=== PATIENT | male | born 1960 | race Caucasian/White ===

== ENCOUNTER 2024-07-15 05:31 | Inpatient (IN) | payer OTHER ==
[~2024-07-15] VITALS: Ht 152.4 cm; Wt 94.8 kg
[2024-07-15 00:55] VITALS: RESP 29
[2024-07-15 05:55] LABS: BG BASE EXCESS -23.9 mmol/L (-2.0-3.0); BG CARBOXYHEMOGLOBIN 1.1 % (0.5-1.5); BG DEOXYHEMOGLOBIN 0.1 % (0.0-5.0); BG FRACTION INSPIRED OXYGEN 100; BG HCO3 ACT 3.5 mmol/L (21.0-28.0); BG METHEMOGLOBIN 0.3 % (0.5-1.5); BG OXYGEN SATURATION 99.9 % (94.0-98.0); BG OXYHEMOGLOBIN 98.5 % (94.0-98.0); BG PCO2 11.3 mmHg (35.0-48.0); BG PH 7.107 (7.350-7.450); BG PO2 258.6 mmHg (83.0-108.0); BG SAMPLE SITE RIGHT RADIAL
[2024-07-15 06:08] LABS: HEMATOCRIT. 34.1 % (42.0-52.0); HEMOGLOBIN. 9.3 g/dL (14.0-18.0); MEAN CORPUSCULAR HEMOGLOBIN 19.8 pg (28.0-32.0); MEAN CORPUSCULAR HGB CONC 27.4 g/dL (31.0-37.0); MEAN CORPUSCULAR VOLUME 72.2 fL (80.0-94.0); MEAN PLATELET VOLUME 8.6 fl (7.4-10.4); PLATELET 719 x1000/uL (130-400); RED BLOOD CELL COUNT 4.73 mill/uL (4.7-6.1); RED CELL DISTRIBUTION WIDTH 20.2 % (11.6-14.6); WHITE BLOOD COUNT 22.2 x1000/uL (4.5-11.0)
[2024-07-15 06:14] LABS: CHLORIDE 98 mEq/L (98-107); POTASSIUM 4.5 mEq/L (3.5-5.1); SODIUM 131 mEq/L (136-145)
[2024-07-15 06:15] LABS: CALCIUM 9.1 mg/dL (8.7-10.4); CARBON DIOXIDE 11 mEq/L (21-32)
[2024-07-15 06:17] LABS: DIFFERENTIAL COMMENT 1
[2024-07-15 06:20] LABS: CREATININE 1.1 mg/dL (0.6-1.3)
[2024-07-15 06:21] LABS: UREA NITROGEN BLOOD 12 mg/dL (9-23)
[2024-07-15 06:22] LABS: ALANINE AMINOTRANSFERASE 24 IU/L (10-49); ALBUMIN 4.3 g/dL (3.2-4.8); ASPARTATE AMINOTRANSFERASE 35 IU/L (<34)
[2024-07-15 06:23] LABS: BILIRUBIN TOTAL 0.3 mg/dL (0.1-1.0); PROTEIN TOTAL 7.1 g/dL (6.0-8.3)
[2024-07-15 06:27] LABS: PROTHROMBIN TIME 11.2 sec (9.6-11.0)
[2024-07-15 06:40] LABS: BILIRUBIN DIRECT < 0.1 mg/dL (<=3.0); LACTIC ACID 13.6 mmol/L (0.4-2.0); TROPONIN I HIGH SENSITIVITY 267 ng/L (3.0-53)
[2024-07-15 06:41] LABS: GLUCOSE 412 mg/dL (70-105)
[2024-07-15 08:10] VITALS: RESP 24
[2024-07-15] MEDS: SODIUM CHLORIDE 0.9% (SEPSIS BOLUS) IV ONE (08:45)
[2024-07-15] MEDS: PIPERACILLIN/TAZO 3.375G/50ML 50 ML IV ONE (08:45)
[2024-07-15 08:57] LABS: ANISOCYTOSIS 2+; MICROCYTOSIS 1+; OVALOCYTES 1+; PLATELET ESTIMATE INCREASED
[2024-07-15] MEDS: VANCOMYCIN 1G PREMIX 200 ML IV ONE (09:24)
[2024-07-15 09:47] LABS: BG BASE EXCESS -6.7 mmol/L (-2.0-3.0); BG CARBOXYHEMOGLOBIN 0.9 % (0.5-1.5); BG DEOXYHEMOGLOBIN 0.3 % (0.0-5.0); BG FRACTION INSPIRED OXYGEN 100; BG HCO3 ACT 16.7 mmol/L (21.0-28.0); BG METHEMOGLOBIN 0.3 % (0.5-1.5); BG OXYGEN SATURATION 99.7 % (94.0-98.0); BG OXYHEMOGLOBIN 98.5 % (94.0-98.0); BG PCO2 26.3 mmHg (35.0-48.0); BG PH 7.421 (7.350-7.450); BG PO2 435.9 mmHg (83.0-108.0); BG SAMPLE SITE RIGHT BRACHIAL; BG TOTAL HEMOGLOBIN 8.7 g/dL (13.5-17.5); BG TOTAL RESPIRATORY RATE 27 b/min; BG VENT MODE MASK - BIPAP
[2024-07-15 09:48] LABS: CLARITY URINE CLEAR (CLEAR); COLOR URINE YELLOW (YELLOW); GLUCOSE URINE TRACE (NEGATIVE); KETONES URINE NEGATIVE (NEGATIVE); LEUKOCYTE ESTERASE URINE 1+ (NEGATIVE); NITRITE URINE NEGATIVE (NEGATIVE); OCCULT BLOOD URINE TRACE (NEGATIVE); PH URINE 5.5 (4.5-8.0); PROTEIN URINE 1+ (NEGATIVE); SPECIFIC GRAVITY URINE 1.011 (1.005-1.030); UROBILINOGEN URINE 0.2 E.U./dL (0.2-1.0)
[2024-07-15 09:53] LABS: TROPONIN I HIGH SENSITIVITY 5355 ng/L (3.0-53)
[2024-07-15 10:07] LABS: BACTERIA URINE 1+; RBC URINE NONE SEEN /hpf (0-2); SQUAMOUS EPITHELIAL CELL URINE NONE SEEN /lpf (RARE/1+); YEAST URINE NONE SEEN
[2024-07-15] MEDS ORDERED: MAGNESIUM 2 G PREMIX 50 ML IV PRN (13:45)
[2024-07-15] MEDS ORDERED: KCL 20MEQ/100ML PREMIX 100 ML IV PRN (13:45)
[2024-07-15] MEDS ORDERED: ONDANSETRON HCL 4MG/2ML INJ IV PRN (13:45)
[2024-07-15] MEDS ORDERED: BLOOD SUGAR DIAGNOSTIC STRIP TEST PRN (13:45)
[2024-07-15] MEDS ORDERED: SODIUM PHOSPHATE 15 MMOL in SODIUM CHLORIDE 0.9% 245 ML IV PRN (13:45)
[2024-07-15] MEDS ORDERED: DEXTROSE 50% WATER 50ML SYRINGE IV PRN (13:45)
[2024-07-15] MEDS ORDERED: HEPARIN 25,000 UNITS PREMIX 250 ML IV SCH ×2 (13:45→14:45)
[2024-07-15] MEDS: DEXT 5%/0.9% NACL 1,000 ML IV SCH (14:00)
[2024-07-15] MEDS ORDERED: POTASSIUM CHLORIDE 40 MEQ in SODIUM CHLORIDE 0.9% 230 ML IV PRN (14:00)
[2024-07-15] MEDS: BLOOD SUGAR DIAGNOSTIC STRIP TEST SCH (14:22)
[2024-07-15] MEDS: SODIUM CHLORIDE 0.9% 1,000 ML IV SCH (14:50)
[2024-07-15] MEDS: PANTOPRAZOLE SODIUM 40 MG/VIAL IV SCH (14:51)
[2024-07-15] MEDS: ASPIRIN 81MG TABLET PO SCH (14:51)
[2024-07-15] MEDS: INSULIN REGULAR 100U/100ML PMX 100 ML IV SCH (14:51)
[2024-07-15] MEDS: PIPERACILLIN/TAZO 3.375G/50ML IV SCH (14:51)
[2024-07-15] MEDS: AZITHROMYCIN 500MG/250ML 250 ML IV SCH (15:43)
[2024-07-15 16:53] LABS: CHLORIDE 108 mEq/L (98-107); POTASSIUM 4.4 mEq/L (3.5-5.1); SODIUM 138 mEq/L (136-145)
[2024-07-15 16:54] LABS: CARBON DIOXIDE 20 mEq/L (21-32)
[2024-07-15 16:55] LABS: CHLORIDE 106 mEq/L (98-107); POTASSIUM 4.3 mEq/L (3.5-5.1); SODIUM 137 mEq/L (136-145)
[2024-07-15 16:56] LABS: CALCIUM 8.6 mg/dL (8.7-10.4); CARBON DIOXIDE 21 mEq/L (21-32)
[2024-07-15 17:01] LABS: CREATININE 0.7 mg/dL (0.6-1.3); UREA NITROGEN BLOOD 9 mg/dL (9-23)
[2024-07-15 17:03] LABS: CREATINE KINASE MB FRACTION 42.4 ng/mL (0.5-3.6)
[2024-07-15 17:07] LABS: GLUCOSE 119 mg/dL (70-105)
[2024-07-15] MEDS: HEPARIN 60 UNITS/KG BOLUS IV NR (17:22)
[2024-07-15] MEDS: ACETAMINOPHEN 325MG TABLET PO PRN (17:29)
[2024-07-15] MEDS: HEPARIN 25,000 UNITS PREMIX 250 ML IV PRN (17:38)
[2024-07-15] MEDS: DOXYCYCLINE 100MG/100ML 100 ML IV SCH (18:23)
[2024-07-15] MEDS: VANCOMYCIN 750MG/150ML (BAXTER) IV SCH (19:27)
[2024-07-15 20:37] LABS: CHLORIDE 107 mEq/L (98-107); POTASSIUM 3.9 mEq/L (3.5-5.1); SODIUM 137 mEq/L (136-145)
[2024-07-15 20:38] LABS: CARBON DIOXIDE 19 mEq/L (21-32)
[2024-07-15 20:45] LABS: PHOSPHORUS 2.9 mg/dL (2.5-4.9)
[2024-07-15] MEDS: ATORVASTATIN CALCIUM 40MG TABLET PO SCH (20:53)
[2024-07-15] MEDS ORDERED: HEPARIN BOLUS PRN aPTT <30 IV (23:00)
[2024-07-15] MEDS: ZOLPIDEM TARTRATE 5MG TABLET PO PRN (23:50)
[2024-07-16 00:19] LABS: CHLORIDE 109 mEq/L (98-107); POTASSIUM 4.1 mEq/L (3.5-5.1); SODIUM 139 mEq/L (136-145)
[2024-07-16 00:20] LABS: CARBON DIOXIDE 19 mEq/L (21-32)
[2024-07-16 00:26] LABS: CREATINE KINASE MB FRACTION 28.9 ng/mL (0.5-3.6)
[2024-07-16 00:27] LABS: CREATINE KINASE 234 IU/L (46-171); PHOSPHORUS 2.9 mg/dL (2.5-4.9)
[2024-07-16 00:35] LABS: TROPONIN I HIGH SENSITIVITY 5182 ng/L (3.0-53)
[2024-07-16] MEDS: HEPARIN BOLUS PRN aPTT 30-44 IV (01:51)
[2024-07-16] MEDS ORDERED: IPRATROPIUM/ALBUTEROL 0.5-3(2.5)MG/3ML NEB HHN PRN (03:45)
[2024-07-16 04:25] VITALS: RESP 26
[2024-07-16 06:11] LABS: BG BASE EXCESS -19.4 mmol/L (-2.0-3.0); BG CARBOXYHEMOGLOBIN 1.1 % (0.5-1.5); BG DEOXYHEMOGLOBIN 4.3 % (0.0-5.0); BG FRACTION INSPIRED OXYGEN 100; BG HCO3 ACT 10.2 mmol/L (21.0-28.0); BG METHEMOGLOBIN 0.3 % (0.5-1.5); BG OXYGEN SATURATION 95.6 % (94.0-98.0); BG OXYHEMOGLOBIN 94.3 % (94.0-98.0); BG PCO2 37.7 mmHg (35.0-48.0); BG PH 7.048 (7.350-7.450); BG PO2 111.7 mmHg (83.0-108.0); BG SAMPLE SITE RIGHT RADIAL; BG TOTAL HEMOGLOBIN 11.3 g/dL (13.5-17.5); BG VENT MODE MASK - BIPAP
[2024-07-16] MEDS: PIPERACILLIN/TAZO 3.375G/50ML 50 ML IV SCH (06:46)
[2024-07-16] MEDS: SODIUM BICARBONATE 8.4% 50MEQ/50ML SYR IV ONE (07:14)
[2024-07-16] MEDS: SODIUM BICARBONATE 8.4% 50MEQ/50ML SYR IV NR ×2 (07:15→09:25)
[2024-07-16 07:45] VITALS: RESP 35
[2024-07-16] MEDS ORDERED: SODIUM BICARBONATE IV SCH (07:45)
[2024-07-16] MEDS ORDERED: SODIUM CHLORIDE 0.45% IV SCH (07:45)
[2024-07-16 08:29] LABS: HEMATOCRIT. 34.6 % (42.0-52.0); HEMOGLOBIN. 10.3 g/dL (14.0-18.0); MEAN CORPUSCULAR HEMOGLOBIN 19.6 pg (28.0-32.0); MEAN CORPUSCULAR HGB CONC 29.9 g/dL (31.0-37.0); MEAN CORPUSCULAR VOLUME 65.6 fL (80.0-94.0); MEAN PLATELET VOLUME 8.1 fl (7.4-10.4); PLATELET 725 x1000/uL (130-400); RED BLOOD CELL COUNT 5.27 mill/uL (4.7-6.1); RED CELL DISTRIBUTION WIDTH 19.8 % (11.6-14.6); WHITE BLOOD COUNT 25.8 x1000/uL (4.5-11.0)
[2024-07-16 08:33] LABS: DIFFERENTIAL COMMENT 1
[2024-07-16 08:36] LABS: CHLORIDE 106 mEq/L (98-107); POTASSIUM 4.1 mEq/L (3.5-5.1); SODIUM 139 mEq/L (136-145)
[2024-07-16 08:37] LABS: CARBON DIOXIDE 17 mEq/L (21-32)
[2024-07-16 08:38] LABS: CALCIUM 8.4 mg/dL (8.7-10.4)
[2024-07-16 08:42] LABS: GLUCOSE 219 mg/dL (70-105); UREA NITROGEN BLOOD 15 mg/dL (9-23)
[2024-07-16] MEDS: NOREPINEPHRINE 8MG/250ML PMX 250 ML IV ONE (08:51)
[2024-07-16] MEDS: SODIUM BICARBONATE 150 MEQ in SODIUM CHLORIDE 0.45% 850 ML IV SCH (09:17)
[2024-07-16] MEDS: KETAMINE HCL 50 MG/ML 10ML IV ONE (09:25)
[2024-07-16 09:50] VITALS: RESP 26
[2024-07-16] MEDS: IPRATROPIUM/ALBUTEROL 0.5-3(2.5)MG/3ML NEB HHN NR (09:50)
[2024-07-16 13:02] LABS: *AMPHETAMINES SCREEN URINE NEGATIVE (NEGATIVE); *BENZODIAZEPINES SCREEN URINE NEGATIVE (NEGATIVE)
[2024-07-16 13:03] LABS: *BARBITURATES SCREEN URINE NEGATIVE (NEGATIVE); *COCAINE SCREEN URINE NEGATIVE (NEGATIVE); CANNABINOID URINE SCREEN NEGATIVE (NEGATIVE); ECSTASY MDMA SCREEN URINE NEGATIVE (NEGATIVE); METHADONE URINE SCREEN NEGATIVE (NEGATIVE); OPIATES URINE SCREEN NEGATIVE (NEGATIVE); PHENCYCLIDINE URINE SCREEN NEGATIVE (NEGATIVE)
[2024-07-16 15:15] VITALS: RESP 23
[2024-07-16] MEDS: IPRATROPIUM/ALBUTEROL 0.5-3(2.5)MG/3ML NEB NEB PRN (15:15)
[2024-07-16 19:27] LABS: BG BASE EXCESS -1.6 mmol/L (-2.0-3.0); BG CARBOXYHEMOGLOBIN 1.4 % (0.5-1.5); BG DEOXYHEMOGLOBIN 0.3 % (0.0-5.0); BG FRACTION INSPIRED OXYGEN 100; BG HCO3 ACT 19.7 mmol/L (21.0-28.0); BG OXYGEN SATURATION 99.7 % (94.0-98.0); BG OXYHEMOGLOBIN 98.3 % (94.0-98.0); BG PCO2 22.3 mmHg (35.0-48.0); BG PH 7.565 (7.350-7.450); BG PO2 305.4 mmHg (83.0-108.0); BG SAMPLE SITE RIGHT BRACHIAL; BG TOTAL HEMOGLOBIN 8.5 g/dL (13.5-17.5); BG VENT MODE MASK - BIPAP
[2024-07-16 19:44] LABS: ANISOCYTOSIS 1+; HYPOCHROMASIA 2+; MICROCYTOSIS 3+; PLATELET ESTIMATE INCREASED
[2024-07-16 20:00] VITALS: RESP 22
[2024-07-17] MEDS: MELATONIN 3MG TABLET PO SCH (02:54)
[2024-07-17] MEDS: LEVETIRACETAM 500MG/5ML CUP PO NR (02:54)
[2024-07-17 03:50] VITALS: RESP 24
[2024-07-17 05:08] LABS: CHLORIDE 101 mEq/L (98-107); POTASSIUM 3.3 mEq/L (3.5-5.1); SODIUM 138 mEq/L (136-145)
[2024-07-17 05:10] LABS: CALCIUM 7.9 mg/dL (8.7-10.4); CARBON DIOXIDE 28 mEq/L (21-32)
[2024-07-17 05:14] LABS: CREATININE 0.8 mg/dL (0.6-1.3)
[2024-07-17 05:15] LABS: GLUCOSE 154 mg/dL (70-105); UREA NITROGEN BLOOD 16 mg/dL (9-23)
[2024-07-17 08:12] LABS: BG BASE EXCESS 6.1 mmol/L (-2.0-3.0); BG CARBOXYHEMOGLOBIN 1.6 % (0.5-1.5); BG DEOXYHEMOGLOBIN 1.1 % (0.0-5.0); BG FRACTION INSPIRED OXYGEN 44; BG HCO3 ACT 28.8 mmol/L (21.0-28.0); BG METHEMOGLOBIN 0.2 % (0.5-1.5); BG OXYGEN SATURATION 98.9 % (94.0-98.0); BG OXYHEMOGLOBIN 97.1 % (94.0-98.0); BG PCO2 33.7 mmHg (35.0-48.0); BG PH 7.549 (7.350-7.450); BG PO2 132.7 mmHg (83.0-108.0); BG SAMPLE SITE RIGHT RADIAL; BG TOTAL HEMOGLOBIN 8.5 g/dL (13.5-17.5); BG VENT MODE NASAL CANNULA
[2024-07-17 08:25] VITALS: RESP 22
[2024-07-17] MEDS: PHENYTOIN SODIUM EXTENDED 100MG CAPSULE PO SCH (08:40)
[2024-07-17] MEDS: LEVETIRACETAM 500MG/5ML CUP PO SCH (09:18)
[2024-07-17] MEDS: LAMOTRIGINE 100MG TABLET PO SCH (09:19)
[2024-07-17] MEDS: KCL 20MEQ/100ML PREMIX 100 ML IV SCH (11:00)
[2024-07-17 15:15] VITALS: RESP 19
[2024-07-17 19:50] VITALS: BP 99/60; PULSE 82; RESP 24; TEMP 36.4
[2024-07-17 20:00] VITALS: BP 102/61; PULSE 84; RESP 21; TEMP 36.3; O2SAT 100
[2024-07-17 21:57] LABS: CHLORIDE 100 mEq/L (98-107); POTASSIUM 3.4 mEq/L (3.5-5.1); SODIUM 138 mEq/L (136-145)
[2024-07-17 21:58] LABS: CALCIUM 7.8 mg/dL (8.7-10.4); CARBON DIOXIDE 33 mEq/L (21-32)
[2024-07-17 22:00] VITALS: BP 109/66; PULSE 82; RESP 20; O2SAT 100
[2024-07-17 22:03] LABS: CREATININE 0.8 mg/dL (0.6-1.3); GLUCOSE 145 mg/dL (70-105); UREA NITROGEN BLOOD 18 mg/dL (9-23)
[2024-07-17] MEDS ORDERED: DEXTROSE 50% WATER 50ML SYRINGE IV PRN (22:15)
[2024-07-17] MEDS: GUAIFENESIN-DM 200MG-20MG/10ML UDC PO PRN (22:30)
[2024-07-17] MEDS: MORPHINE SULFATE 2 MG/ML INJ (NOT FOR IM USE) IV NR (22:30)
[2024-07-18] VITALS (12 sets, daily range): BP systolic 98–134; BP diastolic 53–89; PULSE 82–108; RESP 14–29; TEMP 36.4–37.1; O2SAT 98–100
[2024-07-18] MEDS: DOXYCYCLINE 100MG/100ML 100 ML IV SCH (01:02)
[2024-07-18] MEDS: CYCLOBENZAPRINE 10MG TABLET PO SCH (03:13)
[2024-07-18 06:26] LABS: CARBON DIOXIDE 32 mEq/L (21-32); CHLORIDE 100 mEq/L (98-107); POTASSIUM 3.3 mEq/L (3.5-5.1); SODIUM 138 mEq/L (136-145)
[2024-07-18 06:27] LABS: CALCIUM 7.9 mg/dL (8.7-10.4)
[2024-07-18 06:31] LABS: CREATININE 0.8 mg/dL (0.6-1.3)
[2024-07-18 06:32] LABS: GLUCOSE 112 mg/dL (70-105); UREA NITROGEN BLOOD 18 mg/dL (9-23)
[2024-07-18] MEDS: INSULIN LISPRO 100 UNITS/ML SUBCUT SCH (07:30)
[2024-07-18] MEDS: BLOOD SUGAR DIAGNOSTIC STRIP TEST SCH (07:30)
[2024-07-18] MEDS: POTASSIUM CHLORIDE 20MEQ TABLET SR PO SCH (10:39)
[2024-07-18 12:43] LABS: BASOPHILS % 0.3 % (0.0-2.0); EOSINOPHILS % 0.8 % (0.0-5.0); HEMATOCRIT. 23.7 % (42.0-52.0); LYMPHOCYTES % 9.7 % (20.0-50.0); MEAN CORPUSCULAR HEMOGLOBIN 19.4 pg (28.0-32.0); MEAN CORPUSCULAR HGB CONC 29.7 g/dL (31.0-37.0); MEAN CORPUSCULAR VOLUME 65.1 fL (80.0-94.0); MEAN PLATELET VOLUME 8.4 fl (7.4-10.4); MONOCYTES % 6.8 % (2.0-8.0); NEUTROPHILS % 82.4 % (40.0-76.0); PLATELET 337 x1000/uL (130-400); RED BLOOD CELL COUNT 3.63 mill/uL (4.7-6.1); RED CELL DISTRIBUTION WIDTH 18.8 % (11.6-14.6); WHITE BLOOD COUNT 13.5 x1000/uL (4.5-11.0)
[2024-07-18 12:50] LABS: DIFFERENTIAL COMMENT 1
[2024-07-18 12:51] LABS: INR 1.5; PROTHROMBIN TIME 16.1 sec (9.6-11.0)
[2024-07-18 13:09] LABS: ALANINE AMINOTRANSFERASE > 1100 IU/L (10-49); ALBUMIN 3.2 g/dL (3.2-4.8); BILIRUBIN DIRECT 0.3 mg/dL (<=3.0); PHOSPHORUS 2.2 mg/dL (2.5-4.9)
[2024-07-18 13:10] LABS: BILIRUBIN TOTAL 0.7 mg/dL (0.1-1.0)
[2024-07-18 13:20] LABS: ASPARTATE AMINOTRANSFERASE 3872 IU/L (<34)
[2024-07-18 16:07] LABS: IRON 29 ug/dL (65-175)
[2024-07-18 16:10] LABS: TOTAL IRON BINDING CAPACITY 425 ug/dl (250-425)
[2024-07-18 16:12] LABS: FOLIC ACID (FOLATE) SERUM > 20.00 ng/mL (>5.38)
[2024-07-18 16:13] LABS: FERRITIN 105 ng/mL (22-322); PROTEIN TOTAL 5.1 g/dL (6.0-8.3)
[2024-07-18 16:16] LABS: VITAMIN B12 SERUM > 2000 pg/mL (211-911)
[2024-07-18] MEDS: PANTOPRAZOLE SODIUM 40 MG/VIAL IV SCH (21:16)
[2024-07-18] MEDS: SODIUM PHOSPHATE 20 MMOL in DEXT 5% WATER 243.3333 ML IV NR (21:32)
[2024-07-18] MEDS: MAGNESIUM 2 G PREMIX 50 ML IV SCH (23:38)
[2024-07-19] VITALS (16 sets, daily range): BP systolic 97–121; BP diastolic 44–77; PULSE 70–87; RESP 16–28; TEMP 36.33624–37.1; O2SAT 94–98
[2024-07-19 06:20] LABS: CHLORIDE 101 mEq/L (98-107); POTASSIUM 3.3 mEq/L (3.5-5.1); SODIUM 137 mEq/L (136-145)
[2024-07-19 06:24] LABS: CALCIUM 7.9 mg/dL (8.7-10.4); CARBON DIOXIDE 30 mEq/L (21-32)
[2024-07-19 06:27] LABS: UREA NITROGEN BLOOD 15 mg/dL (9-23)
[2024-07-19 06:29] LABS: ALANINE AMINOTRANSFERASE > 1100 IU/L (10-49); CREATININE 0.8 mg/dL (0.6-1.3); GLUCOSE 110 mg/dL (70-105)
[2024-07-19 06:31] LABS: ALBUMIN 3.1 g/dL (3.2-4.8); ASPARTATE AMINOTRANSFERASE > 1000 IU/L (<34)
[2024-07-19 06:32] LABS: BILIRUBIN DIRECT 0.5 mg/dL (<=3.0); BILIRUBIN TOTAL 1.1 mg/dL (0.1-1.0); PHOSPHORUS 2.3 mg/dL (2.5-4.9); PROTEIN TOTAL 5.4 g/dL (6.0-8.3)
[2024-07-19 06:41] LABS: HEPATITIS B SURFACE ANTIGEN NEGATIVE (Negative)
[2024-07-19 07:02] LABS: HEPATITIS A AB IGM NEGATIVE (Negative); HEPATITIS B CORE AB IGM NEGATIVE (Negative)
[2024-07-19 07:03] LABS: HEPATITIS C AB NON REACTIVE (Neg) (Negative)
[2024-07-19 08:29] LABS: BASOPHILS % 0.4 % (0.0-2.0); EOSINOPHILS % 2.8 % (0.0-5.0); HEMATOCRIT. 26.6 % (42.0-52.0); HEMOGLOBIN. 8.3 g/dL (14.0-18.0); LYMPHOCYTES % 14.8 % (20.0-50.0); MEAN CORPUSCULAR HEMOGLOBIN 21.5 pg (28.0-32.0); MEAN CORPUSCULAR HGB CONC 31.1 g/dL (31.0-37.0); MEAN CORPUSCULAR VOLUME 69.2 fL (80.0-94.0); MEAN PLATELET VOLUME 8.5 fl (7.4-10.4); PLATELET 270 x1000/uL (130-400); RED BLOOD CELL COUNT 3.84 mill/uL (4.7-6.1); RED CELL DISTRIBUTION WIDTH 21.6 % (11.6-14.6); WHITE BLOOD COUNT 12.1 x1000/uL (4.5-11.0)
[2024-07-19 08:34] LABS: DIFFERENTIAL COMMENT 1
[2024-07-19] MEDS ORDERED: NON FORMULARY MED XX SCH (11:00)
[2024-07-19] MEDS: IRON SUCROSE COMPLEX 100 MG/5 ML ML IV SCH (12:37)
[2024-07-20] VITALS (12 sets, daily range): BP systolic 94–121; BP diastolic 47–77; PULSE 68–88; RESP 17–29; TEMP 36.1–36.7; O2SAT 92–99
[2024-07-20 05:56] LABS: INR 1.3; PROTHROMBIN TIME 14.6 sec (9.6-11.0)
[2024-07-20 06:25] LABS: BASOPHILS % 0.6 % (0.0-2.0); EOSINOPHILS % 5.6 % (0.0-5.0); HEMATOCRIT. 26.2 % (42.0-52.0); HEMOGLOBIN. 8.1 g/dL (14.0-18.0); LYMPHOCYTES % 16.6 % (20.0-50.0); MEAN CORPUSCULAR HEMOGLOBIN 21.4 pg (28.0-32.0); MEAN CORPUSCULAR HGB CONC 30.9 g/dL (31.0-37.0); MEAN CORPUSCULAR VOLUME 69.2 fL (80.0-94.0); MEAN PLATELET VOLUME 8.8 fl (7.4-10.4); MONOCYTES % 10.3 % (2.0-8.0); NEUTROPHILS % 66.9 % (40.0-76.0); PLATELET 248 x1000/uL (130-400); RED BLOOD CELL COUNT 3.78 mill/uL (4.7-6.1); RED CELL DISTRIBUTION WIDTH 20.8 % (11.6-14.6)
[2024-07-20 06:32] LABS: CHLORIDE 103 mEq/L (98-107); SODIUM 138 mEq/L (136-145)
[2024-07-20 06:35] LABS: CARBON DIOXIDE 30 mEq/L (21-32)
[2024-07-20 06:41] LABS: CREATININE 0.7 mg/dL (0.6-1.3); GLUCOSE 94 mg/dL (70-105); UREA NITROGEN BLOOD 11 mg/dL (9-23)
[2024-07-20 06:42] LABS: ALBUMIN 2.9 g/dL (3.2-4.8)
[2024-07-20 06:43] LABS: ALANINE AMINOTRANSFERASE > 1100 IU/L (10-49); ASPARTATE AMINOTRANSFERASE > 1000 IU/L (<34); BILIRUBIN DIRECT 0.5 mg/dL (<=3.0); BILIRUBIN TOTAL 1.1 mg/dL (0.1-1.0); GAMMA GLUTAMYL TRANSPEPTIDASE 233 IU/L (<73); PROTEIN TOTAL 5.1 g/dL (6.0-8.3)
[2024-07-20 07:34] LABS: DIFFERENTIAL COMMENT 1
[2024-07-20] MEDS ORDERED: CLOPIDOGREL 75MG TABLET PO SCH (09:00)
[2024-07-20] MEDS: POTASSIUM CHLORIDE 20MEQ TABLET SR PO NR (11:02)
[2024-07-21] VITALS (8 sets, daily range): BP systolic 110–132; BP diastolic 59–94; PULSE 82–95; RESP 18–23; TEMP 36.4–36.6; O2SAT 96–97
[2024-07-21] MEDS: ZOLPIDEM TARTRATE 5MG TABLET PO PRN (01:57)
[2024-07-21] MEDS: DIPHENHYDRAMINE 25MG CAPSULE PO PRN (13:24)
== END 2024-07-21 15:45 | DRG 871 ==
LOC: ER 05:31 → EDBEDREQ 09:54 → EDBEDREQTM 09:54 → EDBEDREQSVC 13:55 → 5EST 07-17 19:42
PROVIDERS: ADMIT Internal Medicine; ATTEND Internal Medicine
PROC: 5A09357 Assistance with Respiratory Ventilation, Less than 24 Consecutive Hours, Continuous Positive Airway Pressure (ICD-10-PCS; principal; 2024-07-15)
PROC: 5A09357 Assistance with Respiratory Ventilation, Less than 24 Consecutive Hours, Continuous Positive Airway Pressure (ICD-10-PCS; 2024-07-16)
PROC: 5A1935Z Respiratory Ventilation, Less than 24 Consecutive Hours (ICD-10-PCS; 2024-07-17)
PROC: 5A09357 Assistance with Respiratory Ventilation, Less than 24 Consecutive Hours, Continuous Positive Airway Pressure (ICD-10-PCS; 2024-07-17)
PROC: 30233N1 Transfusion of Nonautologous Red Blood Cells into Peripheral Vein, Percutaneous Approach (ICD-10-PCS; 2024-07-19)
DX: A41.9 Sepsis, unspecified organism (principal); I21.A1 Myocardial infarction type 2; J18.9 Pneumonia, unspecified organism; R65.21 Severe sepsis with septic shock; J96.00 Acute respiratory failure, unspecified whether with hypoxia or hypercapnia; K72.00 Acute and subacute hepatic failure without coma; E87.20 Acidosis, unspecified; N39.0 Urinary tract infection, site not specified; Z20.822 Contact with and (suspected) exposure to COVID-19; E78.5 Hyperlipidemia, unspecified; D50.9 Iron deficiency anemia, unspecified; K76.0 Fatty (change of) liver, not elsewhere classified; D75.839 Thrombocytosis, unspecified; E11.9 Type 2 diabetes mellitus without complications; E66.9 Obesity, unspecified; I11.9 Hypertensive heart disease without heart failure; I44.7 Left bundle-branch block, unspecified; I25.10 Atherosclerotic heart disease of native coronary artery without angina pectoris; I25.2 Old myocardial infarction; Z79.02 Long term (current) use of antithrombotics/antiplatelets; Z79.82 Long term (current) use of aspirin; Z79.899 Other long term (current) drug therapy; Z95.1 Presence of aortocoronary bypass graft; Z95.5 Presence of coronary angioplasty implant and graft; Z68.36 Body mass index [BMI] 36.0-36.9, adult
CPT/HCPCS: 36415; 36600; 71045; 76700; 80048; 80051; 80076; 80185; 80202; 80305; 81003; 82270; 82375; 82550; 82553; 82607; 82728; 82746; 82805; 82962; 82977; 83036; 83540; 83550; 83605; 83735; 83880; 83930; 84100; 84145; 84484; 85025; 85044; 86705; 86709; 86850; 86900; 86920; 87340; 87426; 87449; 93005; 93306; 93970; 94070; 94660; 94664; 98960; 99291; A6261; J0456; J1644; J1815; J2270; J2470; J2543; J3370; J3475; J3480; J3490; J7030; J7060; P9016; Q0163